=== PATIENT | male | born 1945 | race Caucasian/White ===

== ENCOUNTER → 2020-06-11 | Outpatient (CLI) | payer MEDICARE ==
[~2020-06-11] MED LIST: CEFUROXIME250 MG PO; DIOVAN40 MG PO; DIOVAN80 MG PO; HYDROCODON-ACE1 EAC4 PO; LEVAQUIN500 MG PO; LEVOFLOXACIN750 MG PO; MECLIZINE HCL12.5 MG PO; PEPCID20 MG PO; PRINIVIL10 MG PO; ROCEPHIN1 GM IV; Z.0.SKELAXIN800 MG MT; [UNRECOGNIZED DRUG - CODE] PO; [UNRECOGNIZED DRUG - CODE] PO; [UNRECOGNIZED DRUG - OTHER] TP
--- NOTE | 2020-06-11 12:46 | Diagnostic Imaging Report ---
History: Dementia, memory loss, Comparison studies: No prior imaging available for comparison the time of dictation. Technique: 3-D T1, axial DWI, axial T2*GRE, axial T2 and axial T2 FLAIR. Intravenous contrast: None Findings: Limitations: Several pulse sequences are limited by artifacts related to patient motion. Magnetic susceptibility also results in artifacts which limits evaluation of the temporal lobes and posterior fossa on the axial DWI sequence and the posterior fossa on the axial T2 sequence. Scalp: Normal in signal. No masses. Bone marrow: Normal in signal intensity. Brain sulci: Mildly prominent. Ventricles: Mild compensatory dilatation. No hydrocephalus. Extra axial spaces: No mass, no fluid collection. Parenchyma: No mass or hemorrhage. No abnormal restricted diffusion in the parenchyma not affected by artifact. Scattered and mildly confluent T2 FLAIR hyperintense foci in the supratentorial white matter are nonspecific but are most compatible with chronic microvascular ischemic changes. 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 Small chronic right occipitotemporal cortical-based insult with encephalomalacia and gliosis which was also described on prior head CT reports (images are unavailable on the PACS for comparison). There is mild generalized volume loss with mild volume loss along the bilateral anteromedial temporal lobes and hippocampi. No disproportionate brainstem or cerebellar atrophy. Suprasellar region: No abnormalities. Craniocervical junction: Patent foramen magnum. No Chiari malformation. Vessels: Normal flow-voids in the arteries and sinuses. IMPRESSION: Limited exam as described. In spite of limitations: 1. Mild generalized parenchymal volume loss with mild volume loss along the bilateral anteromedial temporal lobes and hippocampi. 2. 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 Signed by: Dr. Rey Solis M.D. on 06/11/2020 12:42 PM
== END ==
LOC: MRI 09:18
PROVIDERS: ATTEND Family Medicine
DX: F03.90 Unspecified dementia, unspecified severity, without behavioral disturbance, psychotic disturbance, mood disturbance, and anxiety (principal)
CPT/HCPCS: 70551

== ENCOUNTER 2021-06-09 17:51 | Inpatient (IN) | payer MEDICARE ==
[~2021-06-09] VITALS: Ht 208.3 cm; Wt 74.8 kg
[2021-06-09 18:49] LABS: BASOPHILS # (AUTO) 0.1 (0.0-0.1); BASOPHILS % 0.4 % (0.0-1.0); EOSINOPHILS # (AUTO) 0.7 (0.0-0.4); EOSINOPHILS % 3.8 % (0.0-6.0); HEMATOCRIT 56.3 % (38.2-49.6); HEMOGLOBIN 17.1 g/dL (14.0-18.0); LYMPHOCYTES # (AUTO) 1.2 (1.0-3.2); LYMPHOCYTES % 6.9 % (18.0-39.1); MEAN CORPUSCULAR HEMOGLOBIN 30.1 pg (28-32); MEAN CORPUSCULAR HGB CONC 30.4 g/dL (31-35); MEAN CORPUSCULAR VOLUME 98.9 fL (81-99); MONOCYTES # (AUTO) 0.6 (0.2-0.8); MONOCYTES % 3.6 % (4.4-11.3); NEUTROPHILS # (AUTO) 14.5 (2.1-6.9); NEUTROPHILS % 84.7 % (38.7-80.0); PLATELET COUNT 480 x10e3/uL (140-360); RED BLOOD COUNT 5.69 x10e6/uL (4.3-5.7); RED CELL DISTRIBUTION WIDTH 15.4 % (11.7-14.4)
[2021-06-09] MEDS ORDERED: DEXTROSE 5% 1,000 ML IV ONE (19:00)
[2021-06-09 19:06] LABS: MAGNESIUM 2.7 MG/DL (1.3-2.1); PHOSPHORUS 3.9 MG/DL (2.3-4.7)
[2021-06-09] MEDS: CEFEPIME 1 GM in SODIUM CHLORIDE 0.9% 50ML 50 ML IV SCH (19:07)
[2021-06-09 19:09] LABS: ALBUMIN 3.2 g/dL (3.5-5.0); ALBUMIN/GLOBULIN RATIO 0.9 (0.8-2.0); ANION GAP 21.1 mmol/L (8-16); CALCIUM 9.6 mg/dL (8.4-10.2); CREATININE, SERUM 1.15 mg/dL (0.72-1.25); POTASSIUM 4.1 mmol/L (3.5-5.1)
[2021-06-09 19:24] LABS: CLARITY,URINE HAZY (CLEAR); COLOR,URINE STRAW (YELLOW); KETONES,URINE 1+ (NEGATIVE); LEUKOCYTE ESTERASE ,URINE SMALL (NEGATIVE); NITRITE,URINE POSITIVE (NEGATIVE); PROTEIN,URINE DIPSTICK NEGATIVE (NEGATIVE); URINE UROBILINOGEN 0.2 mg/dL (0.2 - 1)
[2021-06-09 19:36] LABS: BACTERIA,URINE MANY /HPF; EPITHELIAL CELLS,URINE FEW /LPF
[2021-06-09 20:29] LABS: CREATINE KINASE MB 7.6 ng/mL (0-5.0)
[2021-06-09] MEDS ORDERED: LORAZEPAM INJ 2 MG/ML VIAL IV ONE (21:15)
[2021-06-10] MEDS ORDERED: DEXTROSE 5% 0 ML IV ONE (04:19)
[2021-06-10 05:41] LABS: BASOPHILS # (AUTO) 0.2 (0.0-0.1); BASOPHILS % 0.4 % (0.0-1.0); HEMOGLOBIN 15.4 g/dL (14.0-18.0); LYMPHOCYTES # (AUTO) 0.4 (1.0-3.2); LYMPHOCYTES % 0.8 % (18.0-39.1); MEAN CORPUSCULAR HEMOGLOBIN 30.3 pg (28-32); MEAN CORPUSCULAR HGB CONC 30.8 g/dL (31-35); MEAN CORPUSCULAR VOLUME 98.2 fL (81-99); MONOCYTES # (AUTO) 1.3 (0.2-0.8); MONOCYTES % 3.1 % (4.4-11.3); NEUTROPHILS # (AUTO) 38.9 (2.1-6.9); NEUTROPHILS % 91.4 % (38.7-80.0); PLATELET COUNT 392 x10e3/uL (140-360); RED BLOOD COUNT 5.09 x10e6/uL (4.3-5.7); RED CELL DISTRIBUTION WIDTH 15.6 % (11.7-14.4)
[2021-06-10 06:07] LABS: CREATINE KINASE MB 12.5 ng/mL (0-5.0)
[2021-06-10 06:11] LABS: ALBUMIN 2.7 g/dL (3.5-5.0); ALBUMIN/GLOBULIN RATIO 0.8 (0.8-2.0); CALCIUM 8.9 mg/dL (8.4-10.2); CREATININE, SERUM 1.66 mg/dL (0.72-1.25)
[2021-06-10] MEDS ORDERED: Vancomycin IV 1 GM in SODIUM CHLORIDE 0.9% 250ML 250 ML IV ONE (06:45)
[2021-06-10] MEDS ORDERED: SODIUM CHLORIDE 0.9% 250ML 250 ML ONE (06:47)
[2021-06-10] MEDS ORDERED: Vancomycin IV 1 GM VIAL ONE (06:47)
[2021-06-10 06:53] LABS: BASOPHILS # (AUTO) 0.1 (0.0-0.1); BASOPHILS % 0.1 % (0.0-1.0); HEMATOCRIT 48.5 % (38.2-49.6); LYMPHOCYTES # (AUTO) 0.6 (1.0-3.2); LYMPHOCYTES % 0.9 % (18.0-39.1); MEAN CORPUSCULAR HEMOGLOBIN 30.4 pg (28-32); MEAN CORPUSCULAR HGB CONC 30.9 g/dL (31-35); MEAN CORPUSCULAR VOLUME 98.4 fL (81-99); MONOCYTES # (AUTO) 2.8 (0.2-0.8); MONOCYTES % 4.7 % (4.4-11.3); NEUTROPHILS # (AUTO) 53.3 (2.1-6.9); NEUTROPHILS % 90.2 % (38.7-80.0); PLATELET COUNT 365 x10e3/uL (140-360); RED BLOOD COUNT 4.93 x10e6/uL (4.3-5.7); RED CELL DISTRIBUTION WIDTH 15.7 % (11.7-14.4)
[2021-06-10] MEDS: DEXTROSE 5% 1,000 ML IV SCH ×2 (07:23→16:18)
[2021-06-10 08:53] LABS: BAND NEUTROPHILS % (MANUAL) 3 %; LYMPHOCYTES % (MANUAL) 1 % (19-48); MONOCYTES % (MANUAL) 4 % (3.4-9.0); NEUTROPHILS % (MANUAL) 92 % (40-74)
[2021-06-10 08:54] LABS: PLATELET ESTIMATE ADEQUATE; RBC MORPHOLOGY COMMENT NORMAL
[2021-06-10 08:55] LABS: MICROCYTOSIS N; PLATELET MORPHOLOGY COMMENT FEW LARGE
[2021-06-10] MEDS: CEFEPIME 1 GM in SODIUM CHLORIDE 0.9% 50ML 50 ML IV SCH (08:56)
[2021-06-10 09:43] LABS: BAND NEUTROPHILS % (MANUAL) 9 %; LYMPHOCYTES % (MANUAL) 1 % (19-48); MONOCYTES % (MANUAL) 3 % (3.4-9.0); NEUTROPHILS % (MANUAL) 87 % (40-74); PLATELET ESTIMATE ADEQUATE; PLATELET MORPHOLOGY COMMENT NORMAL; RBC MORPHOLOGY COMMENT NORMAL
[2021-06-10 11:56] LABS: CREATINE KINASE MB 15.3 ng/mL (0-5.0)
[2021-06-10] MEDS ORDERED: DEXTROSE 5% 1,000 ML IV STA (15:35)
[2021-06-10] MEDS ORDERED: POTASSIUM CHLORIDE 20MEQ/100ML 300 ML IV ONE (16:00)
[2021-06-10] MEDS ORDERED: MAGNESIUM SULF 1GRAM/DEXTROSE 100 ML IV ONE (16:25)
[2021-06-10] MEDS: DIPHENHYDRAMINE HCL INJ 50 MG/ML VIAL IV PRN (20:29)
[2021-06-10] MEDS ORDERED: DIPHENHYDRAMINE HCL INJ 50 MG/ML VIAL ONE (20:33)
[2021-06-10] MEDS ORDERED: SODIUM CHLORIDE 0.9% 100 ML ONE (20:35)
[2021-06-11 06:23] LABS: BASOPHILS # (AUTO) 0.1 (0.0-0.1); BASOPHILS % 0.3 % (0.0-1.0); EOSINOPHILS # (AUTO) 0.5 (0.0-0.4); EOSINOPHILS % 2.3 % (0.0-6.0); HEMATOCRIT 45.1 % (38.2-49.6); HEMOGLOBIN 14.4 g/dL (14.0-18.0); LYMPHOCYTES # (AUTO) 0.9 (1.0-3.2); LYMPHOCYTES % 4.5 % (18.0-39.1); MEAN CORPUSCULAR HEMOGLOBIN 30.3 pg (28-32); MEAN CORPUSCULAR HGB CONC 31.9 g/dL (31-35); MEAN CORPUSCULAR VOLUME 94.9 fL (81-99); MONOCYTES % 4.8 % (4.4-11.3); NEUTROPHILS # (AUTO) 17.9 (2.1-6.9); NEUTROPHILS % 87.4 % (38.7-80.0); PLATELET COUNT 312 x10e3/uL (140-360); RED BLOOD COUNT 4.75 x10e6/uL (4.3-5.7); RED CELL DISTRIBUTION WIDTH 15.1 % (11.7-14.4)
[2021-06-11 06:47] LABS: ALBUMIN 2.5 g/dL (3.5-5.0); ALBUMIN/GLOBULIN RATIO 0.8 (0.8-2.0); ANION GAP 15.5 mmol/L (8-16); CALCIUM 8.4 mg/dL (8.4-10.2); CREATININE, SERUM 1.63 mg/dL (0.72-1.25); POTASSIUM 3.5 mmol/L (3.5-5.1)
[2021-06-11 06:53] LABS: CREATINE KINASE MB 17.1 ng/mL (0-5.0)
[2021-06-11] MEDS: DEXTROSE 5% 1,000 ML IV SCH ×3 (08:05→21:38)
[2021-06-11] MEDS: CEFEPIME 1 GM in SODIUM CHLORIDE 0.9% 50ML 50 ML IV SCH ×4 (08:14→20:10)
[2021-06-11] MEDS: ASPIRIN 300 MG SUPP PR SCH (10:03)
[2021-06-11] MEDS: ENOXAPARIN INJ 80 MG/0.8 ML SYR SC SCH ×3 (11:18→23:12)
[2021-06-11] MEDS ORDERED: POTASSIUM CHLORIDE 20MEQ/100ML 200 ML IV ONE (12:00)
[2021-06-11] MEDS: LORAZEPAM INJ 2 MG/ML VIAL IV PRN (21:23)
[2021-06-11] MEDS: DIPHENHYDRAMINE HCL INJ 50 MG/ML VIAL IV PRN (21:40)
[2021-06-12] MEDS: DEXTROSE 5% 1,000 ML IV SCH ×4 (01:28→16:05)
[2021-06-12] MEDS: LORAZEPAM INJ 2 MG/ML VIAL IV PRN ×3 (05:16→23:18)
[2021-06-12 06:43] LABS: BASOPHILS % 0.2 % (0.0-1.0); EOSINOPHILS # (AUTO) 0.6 (0.0-0.4); EOSINOPHILS % 6.5 % (0.0-6.0); HEMATOCRIT 37.7 % (38.2-49.6); HEMOGLOBIN 10.7 g/dL (14.0-18.0); LYMPHOCYTES # (AUTO) 0.9 (1.0-3.2); LYMPHOCYTES % 9.6 % (18.0-39.1); MEAN CORPUSCULAR HEMOGLOBIN 29.9 pg (28-32); MEAN CORPUSCULAR HGB CONC 28.4 g/dL (31-35); MEAN CORPUSCULAR VOLUME 105.3 fL (81-99); MONOCYTES # (AUTO) 0.5 (0.2-0.8); MONOCYTES % 5.2 % (4.4-11.3); NEUTROPHILS # (AUTO) 7.4 (2.1-6.9); PLATELET COUNT 209 x10e3/uL (140-360); RED BLOOD COUNT 3.58 x10e6/uL (4.3-5.7); RED CELL DISTRIBUTION WIDTH 15.3 % (11.7-14.4)
[2021-06-12] MEDS: DIPHENHYDRAMINE HCL INJ 50 MG/ML VIAL IV PRN ×2 (08:08→16:05)
[2021-06-12] MEDS: CEFEPIME 1 GM in SODIUM CHLORIDE 0.9% 50ML 50 ML IV SCH ×2 (08:30→20:37)
[2021-06-12] MEDS: ASPIRIN 300 MG SUPP PR SCH (09:02)
[2021-06-12] MEDS: ENOXAPARIN INJ 80 MG/0.8 ML SYR SC SCH ×2 (11:06→23:27)
[2021-06-12 12:19] LABS: ANION GAP 11.6 mmol/L (8-16); CALCIUM 8.4 mg/dL (8.4-10.2); CREATININE, SERUM 1.28 mg/dL (0.72-1.25); POTASSIUM 3.6 mmol/L (3.5-5.1)
[2021-06-13] MEDS: DEXTROSE 5% 1,000 ML IV SCH ×2 (05:49→15:54)
[2021-06-13 06:41] LABS: BASOPHILS # (AUTO) 0.1 (0.0-0.1); BASOPHILS % 0.3 % (0.0-1.0); EOSINOPHILS # (AUTO) 0.3 (0.0-0.4); EOSINOPHILS % 1.5 % (0.0-6.0); HEMATOCRIT 48.1 % (38.2-49.6); HEMOGLOBIN 15.6 g/dL (14.0-18.0); LYMPHOCYTES % 5.1 % (18.0-39.1); MEAN CORPUSCULAR HGB CONC 32.4 g/dL (31-35); MEAN CORPUSCULAR VOLUME 92.5 fL (81-99); MONOCYTES # (AUTO) 0.6 (0.2-0.8); NEUTROPHILS # (AUTO) 17.6 (2.1-6.9); NEUTROPHILS % 89.5 % (38.7-80.0); PLATELET COUNT 293 x10e3/uL (140-360); RED CELL DISTRIBUTION WIDTH 14.6 % (11.7-14.4)
[2021-06-13 07:02] LABS: ANION GAP 13.6 mmol/L (8-16); CREATININE, SERUM 1.03 mg/dL (0.72-1.25); POTASSIUM 3.6 mmol/L (3.5-5.1)
[2021-06-13 07:03] LABS: ALBUMIN 2.4 g/dL (3.5-5.0); ALBUMIN/GLOBULIN RATIO 0.7 (0.8-2.0); CALCIUM 8.3 mg/dL (8.4-10.2)
[2021-06-13] MEDS: CEFEPIME 1 GM in SODIUM CHLORIDE 0.9% 50ML 50 ML IV SCH ×2 (09:15→22:03)
[2021-06-13] MEDS: ASPIRIN 300 MG SUPP PR SCH (09:47)
[2021-06-13] MEDS: ENOXAPARIN INJ 80 MG/0.8 ML SYR SC SCH ×2 (11:22→22:03)
[2021-06-13] MEDS: LORAZEPAM INJ 2 MG/ML VIAL IV PRN ×2 (18:32→23:46)
[2021-06-13] MEDS: DIPHENHYDRAMINE HCL INJ 50 MG/ML VIAL IV PRN (23:47)
[2021-06-14] MEDS: LORAZEPAM INJ 2 MG/ML VIAL IV PRN ×4 (00:04→23:37)
[2021-06-14] MEDS: DIPHENHYDRAMINE HCL INJ 50 MG/ML VIAL IV PRN (00:04)
[2021-06-14] MEDS: DEXTROSE 5% 1,000 ML IV SCH ×2 (04:28→18:36)
[2021-06-14 12:15] VITALS: BP 135/107
[2021-06-14] MEDS: CEFEPIME 1 GM in SODIUM CHLORIDE 0.9% 50ML 50 ML IV SCH ×2 (12:15→20:00)
[2021-06-14] MEDS: ASPIRIN 300 MG SUPP PR SCH (12:15)
[2021-06-14] MEDS: ENOXAPARIN INJ 80 MG/0.8 ML SYR SC SCH ×2 (12:15→22:01)
[2021-06-14 14:00] VITALS: BP 141/71
[2021-06-14] MEDS: SODIUM BICARBONATE 650 MG TAB PO SCH (16:29)
[2021-06-14 20:33] VITALS: BP 109/74
[2021-06-15] VITALS (10 sets, daily range): BP systolic 81–126; BP diastolic 68–105
[2021-06-15] MEDS: DIPHENHYDRAMINE HCL INJ 50 MG/ML VIAL IV PRN ×2 (00:15→22:00)
[2021-06-15] MEDS: LORAZEPAM INJ 2 MG/ML VIAL IV PRN ×2 (06:40→11:40)
[2021-06-15] MEDS: SODIUM BICARBONATE 650 MG TAB PO SCH (09:00)
[2021-06-15] MEDS: ASPIRIN 300 MG SUPP PR SCH (09:54)
[2021-06-15] MEDS: DEXTROSE 5% 1,000 ML IV SCH (09:54)
[2021-06-15] MEDS: CEFEPIME 1 GM in SODIUM CHLORIDE 0.9% 50ML 50 ML IV SCH ×2 (09:54→20:00)
[2021-06-15] MEDS: ENOXAPARIN INJ 80 MG/0.8 ML SYR SC SCH ×2 (09:55→22:30)
[2021-06-15 10:19] LABS: ANION GAP 14.9 mmol/L (8-16); CALCIUM 8.5 mg/dL (8.4-10.2); CREATININE, SERUM 0.85 mg/dL (0.72-1.25); PHOSPHORUS 2.6 MG/DL (2.3-4.7); POTASSIUM 3.9 mmol/L (3.5-5.1)
[2021-06-15] MEDS ORDERED: DEXTROSE 5%/0.45% SOD CHL 1,000 ML IV SCH (14:30)
[2021-06-16] VITALS (12 sets, daily range): BP systolic 126–152; BP diastolic 64–96
[2021-06-16] MEDS: LORAZEPAM INJ 2 MG/ML VIAL IV PRN ×3 (03:00→21:35)
[2021-06-16] MEDS: CEFEPIME 1 GM in SODIUM CHLORIDE 0.9% 50ML 50 ML IV SCH ×2 (08:21→20:45)
[2021-06-16] MEDS: TRIAMCINOLONE ACET 0.1% CREAM 15 GM TUBE TOP SCH ×2 (08:21→16:58)
[2021-06-16] MEDS: BALSAM PERU/CASTOR OIL 60 GM OINT...G. TP SCH (09:00)
[2021-06-16] MEDS: ASPIRIN 300 MG SUPP PR SCH (10:00)
[2021-06-16] MEDS: ENOXAPARIN INJ 80 MG/0.8 ML SYR SC SCH ×2 (10:30→20:45)
[2021-06-16] MEDS: SODIUM BICARBONATE 8.4% 150 ML in DEXTROSE 5% 1,000 ML IV SCH (12:27)
[2021-06-16] MEDS: DIPHENHYDRAMINE HCL INJ 50 MG/ML VIAL IV PRN (21:35)
[2021-06-17] VITALS (7 sets, daily range): BP systolic 112–156; BP diastolic 49–89
[2021-06-17] MEDS: LORAZEPAM INJ 2 MG/ML VIAL IV PRN (03:12)
[2021-06-17] MEDS: SODIUM BICARBONATE 8.4% 150 ML in DEXTROSE 5% 1,000 ML IV SCH (03:12)
[2021-06-17] MEDS: DIPHENHYDRAMINE HCL INJ 50 MG/ML VIAL IV PRN (03:25)
[2021-06-17 05:27] LABS: BASOPHILS % 0.3 % (0.0-1.0); EOSINOPHILS # (AUTO) 0.3 (0.0-0.4); EOSINOPHILS % 2.3 % (0.0-6.0); HEMATOCRIT 37.3 % (38.2-49.6); LYMPHOCYTES # (AUTO) 0.8 (1.0-3.2); LYMPHOCYTES % 6.9 % (18.0-39.1); MEAN CORPUSCULAR HEMOGLOBIN 29.8 pg (28-32); MEAN CORPUSCULAR HGB CONC 32.2 g/dL (31-35); MEAN CORPUSCULAR VOLUME 92.6 fL (81-99); MONOCYTES # (AUTO) 0.4 (0.2-0.8); MONOCYTES % 3.3 % (4.4-11.3); NEUTROPHILS # (AUTO) 10.4 (2.1-6.9); NEUTROPHILS % 85.9 % (38.7-80.0); PLATELET COUNT 367 x10e3/uL (140-360); RED BLOOD COUNT 4.03 x10e6/uL (4.3-5.7)
[2021-06-17] MEDS ORDERED: DIGOXIN INJ 0.25 MG/ML 2 ML AMP IV ONE (05:30)
[2021-06-17] MEDS ORDERED: DIGOXIN INJ 0.25 MG/ML 2 ML AMP ONE (05:42)
[2021-06-17] MEDS ORDERED: METOPROLOL TARTRATE INJ 1 MG/ML VIAL IV PRN (05:45)
[2021-06-17 05:47] LABS: ANION GAP 17.1 mmol/L (8-16); CALCIUM 8.4 mg/dL (8.4-10.2); POTASSIUM 3.1 mmol/L (3.5-5.1)
[2021-06-17] MEDS: TRIAMCINOLONE ACET 0.1% CREAM 15 GM TUBE TOP SCH ×2 (07:35→17:48)
[2021-06-17] MEDS: BALSAM PERU/CASTOR OIL 60 GM OINT...G. TP SCH (07:35)
[2021-06-17] MEDS: ASPIRIN 300 MG SUPP PR SCH (07:35)
[2021-06-17] MEDS: CEFEPIME 1 GM in SODIUM CHLORIDE 0.9% 50ML 50 ML IV SCH (07:35)
[2021-06-17] MEDS: ENOXAPARIN INJ 80 MG/0.8 ML SYR SC SCH (10:00)
[2021-06-17] MEDS ORDERED: POTASSIUM CHLORIDE 30 MEQ in DEXTROSE 5% 1,000 ML IV SCH (11:30)
[2021-06-17] MEDS: METOPROLOL TARTRATE INJ 1 MG/ML VIAL IV SCH ×2 (11:41→18:00)
== END 2021-06-17 19:00 | disposition hospice, inpatient (51) | DRG 871 ==
LOC: ER 17:55 → ERHOLD 19:16 → IMCU 06-14 08:22 → MED/SURG3 06-17 13:41 → MED/SURG2 06-17 13:46
PROVIDERS: ADMIT Family Medicine; ATTEND Family Medicine
DX: A41.9 Sepsis, unspecified organism (principal); I21.4 Non-ST elevation (NSTEMI) myocardial infarction; I50.23 Acute on chronic systolic (congestive) heart failure; J69.0 Pneumonitis due to inhalation of food and vomit; E43 Unspecified severe protein-calorie malnutrition; E87.1 Hypo-osmolality and hyponatremia; R64 Cachexia; Z68.1 Body mass index [BMI] 19.9 or less, adult; N17.9 Acute kidney failure, unspecified; I13.0 Hypertensive heart and chronic kidney disease with heart failure and stage 1 through stage 4 chronic kidney disease, or unspecified chronic kidney disease; G93.40 Encephalopathy, unspecified; Z66 Do not resuscitate; Z20.822 Contact with and (suspected) exposure to COVID-19; N32.89 Other specified disorders of bladder; K21.9 Gastro-esophageal reflux disease without esophagitis; E03.9 Hypothyroidism, unspecified; F03.90 Unspecified dementia, unspecified severity, without behavioral disturbance, psychotic disturbance, mood disturbance, and anxiety; E86.0 Dehydration; E87.8 Other disorders of electrolyte and fluid balance, not elsewhere classified; E87.6 Hypokalemia; A41.89 Other specified sepsis; N18.9 Chronic kidney disease, unspecified; L30.9 Dermatitis, unspecified; F41.9 Anxiety disorder, unspecified; L89.151 Pressure ulcer of sacral region, stage 1; I25.10 Atherosclerotic heart disease of native coronary artery without angina pectoris
CPT/HCPCS: 36415; 51700; 70450; 71045; 71250; 74176; 80048; 80053; 81001; 82550; 82553; 82948; 83605; 83735; 84100; 84484; 85025; 87040; 93005; 93306; 96361; 99251; 99285; J0692; J1160; J1200; J1650; J2060; J3370; J3475; J3480; J7050; J7070; U0002